=== PATIENT | female | born 1990 | race Caucasian/White ===

== ENCOUNTER 2020-09-29 05:37 | Inpatient (IN) | payer OTHER ==
[~2020-09-29] VITALS: Ht 162.6 cm; Wt 113.4 kg
[~2020-09-29 05:37] MED LIST: AMOXICILLIN875 MG PO; MUCINEX600 MG PO; PRENATAL VITAM1 EAC3 PO; TYLENOL 500 MG500 MG PO
[2020-09-29] MEDS ORDERED: ROBITUSSIN100 MG/5 M PO (06:44)
[2020-09-29 07:00] LABS: HEMOGLOBIN 13.4 gm/dl (12.3-15.3); RED BLOOD COUNT 4.51 M/UL (4.00-5.10); WHITE BLOOD COUNT 13.7 K/UL (4.5-11.0)
[2020-09-29] MEDS ORDERED: IBU600 MG PO ×2 (15:40→15:41)
[2020-09-29] MEDS ORDERED: COLACE 100MG C100 MG PO (15:40)
[2020-09-29 16:09] LABS: BUN/CREATININE RATIO 12 (0-10)
[2020-09-30 07:55] LABS: HEMOGLOBIN 9.9 gm/dl (12.3-15.3)
== END 2020-10-01 12:49 | disposition home or self-care (01) | DRG 806 ==
LOC: OB 05:37
PROVIDERS: Obstetrics & Gynecology; ADMIT Obstetrics & Gynecology
PROC: 10E0XZZ Delivery of Products of Conception, External Approach (ICD-10-PCS; principal; 2020-09-29)
PROC: 0KQM0ZZ Repair Perineum Muscle, Open Approach (ICD-10-PCS; 2020-09-29)
PROC: 3E0234Z Introduction of Serum, Toxoid and Vaccine into Muscle, Percutaneous Approach (ICD-10-PCS; 2020-09-30)
PROC: 3E0234Z Introduction of Serum, Toxoid and Vaccine into Muscle, Percutaneous Approach (ICD-10-PCS; 2020-10-01)
DX: O77.0 Labor and delivery complicated by meconium in amniotic fluid (principal); O36.0930 Maternal care for other rhesus isoimmunization, third trimester, not applicable or unspecified; Z37.0 Single live birth; Z3A.39 39 weeks gestation of pregnancy; O99.02 Anemia complicating childbirth; D64.9 Anemia, unspecified; Z86.19 Personal history of other infectious and parasitic diseases; O62.2 Other uterine inertia; O99.344 Other mental disorders complicating childbirth; F32.9 Major depressive disorder, single episode, unspecified; Z23 Encounter for immunization
CPT/HCPCS: 36415; 51702; 80053; 81001; 82800; 85014; 85018; 85025; 85461; 86850; 86900; 86901; 90715; J1650; J1940; J1956; J2590; J2790; J7120

== ENCOUNTER → 2021-04-23 | Outpatient (CLI) | payer OTHER ==
[~2021-04-23] MED LIST changes: +COLACE 100MG C100 MG PO; +IBU600 MG PO; +ROBITUSSIN100 MG/5 M PO
== END ==
LOC: EMI 14:19
DX: G44.89 Other headache syndrome (principal); R20.9 Unspecified disturbances of skin sensation; G43.009 Migraine without aura, not intractable, without status migrainosus
CPT/HCPCS: 70551